=== PATIENT | male | born 1960 | race Asian ===

== ENCOUNTER 2017-01-17 20:42 | Emergency (ER) | payer OTHER ==
[~2017-01-17] VITALS: Ht 172.7 cm; Wt 94.8 kg
[2017-01-17] MEDS ORDERED: ASPIR-8181 MG PO (21:16)
[2017-01-17 22:22] LABS: PLATELET COUNT 194 K/uL (142-355)
[2017-01-17 22:34] LABS: POTASSIUM 3.6 mmol/L (3.6-5.2); SODIUM 131 mmol/L (136-145)
== END 2017-01-17 23:11 | disposition home or self-care (01) ==
LOC: ED 20:42
DX: E11.9 Type 2 diabetes mellitus without complications (principal)
CPT/HCPCS: 36415; 80053; 81000; 82962; 83036; 85027; 99283